=== PATIENT | female | born 1975 | race Two or more races ===

== ENCOUNTER 2017-12-18 19:39 | Emergency (ER) | payer BC ==
[2017-12-18 19:55] VITALS: BP 152/82
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
[2017-12-18] MEDS ORDERED: CETIRIZINE 10 MG TABLET PO STA (21:15)
[2017-12-18] MEDS ORDERED: DEXAMETHASONE 10 MG/ML VIAL PO STA (21:15)
== END 2017-12-18 21:36 | disposition home or self-care (01) ==
LOC: ED 19:39
DX: T63.441A Toxic effect of venom of bees, accidental (unintentional), initial encounter (principal); Y92.512 Supermarket, store or market as the place of occurrence of the external cause
CPT/HCPCS: 99282; A9270